=== PATIENT | female | born 1970 | race American Indian/Alaskan Native ===

== ENCOUNTER 2018-05-11 09:20 | Outpatient (CLI) | payer BC | END 2018-05-11 09:21 | disposition home or self-care (01) | LOC: C.CARD 09:20 | DX: E78.00 Pure hypercholesterolemia, unspecified (principal); E66.9 Obesity, unspecified; Z68.38 Body mass index [BMI] 38.0-38.9, adult; E11.65 Type 2 diabetes mellitus with hyperglycemia ==